=== PATIENT | female | born 1940 | race Caucasian/White ===

== ENCOUNTER 2022-04-24 17:31 | Emergency (ER) | payer MEDICAID, MEDICARE ==
[~2022-04-24] VITALS: Ht 167.6 cm; Wt 66.0 kg
[2022-04-24] MEDS ORDERED: ACETAMINOPHEN 325MG TABLET PO ONE (19:00)
[2022-04-24] MEDS ORDERED: TETANUS, DIPHTHERIA, PERTUSSIS VAC/PF 0.5ML (>10YR OLD) IM ONE ×2 (19:00→21:45)
[2022-04-24] MEDS ORDERED: LIDOCAINE HCL 1% 20ML VIAL (Pyxis) INJ INFIL ONE (19:15)
[2022-04-24] MEDS ORDERED: LIDOCAINE HCL/PF 1% 10 MG/ML 5ML VIAL IJ NR (19:15)
[2022-04-24] MEDS ORDERED: LIDOCAINE HCL 1% 20ML VIAL (Pyxis) INJ INFIL NR (21:30)
[2022-04-24] MEDS ORDERED: T3 PO ×2 (22:08)
[2022-04-24 22:30] VITALS: BP 171/79
== END 2022-04-24 22:43 | disposition home or self-care (01) ==
LOC: ER 17:31
DX: S01.01XA Laceration without foreign body of scalp, initial encounter (principal); S43.491A Other sprain of right shoulder joint, initial encounter; I10 Essential (primary) hypertension; E11.9 Type 2 diabetes mellitus without complications; W01.198A Fall on same level from slipping, tripping and stumbling with subsequent striking against other object, initial encounter; Y93.89 Activity, other specified; Y92.010 Kitchen of single-family (private) house as the place of occurrence of the external cause
CPT/HCPCS: 12014; 70450; 72125; 73030; 90471; 90715; 99284; J3490

== ENCOUNTER 2022-05-02 13:36 | Emergency (ER) | payer MEDICARE ==
[~2022-05-02] VITALS: Ht 157.5 cm; Wt 55.0 kg
[~2022-05-02 13:36] MED LIST: T3 PO
[2022-05-02 13:53] VITALS: BP 179/82
[2022-05-02] MEDS ORDERED: NEOM28.37 TP (13:58)
== END 2022-05-02 14:31 | disposition home or self-care (01) ==
LOC: ER 13:43
DX: Z48.02 Encounter for removal of sutures (principal)
CPT/HCPCS: 99281